=== PATIENT | male | born 1960 | race Caucasian/White ===

== ENCOUNTER 2020-12-28 10:48 | Emergency (ER) | payer OTHER ==
[2020-12-28 12:02] LABS: BASOPHIL 0.3 % (0-2); EOSINOPHIL 0.6 % (0-5); HCT 33.5 % (42.0-52.0); HGB 10.6 g/dl (13.2-18.0); LYMPHOCYTE 12.5 % (15-48); MCH 31.5 pg (25.0-31.0); MCHC 31.6 g/dL (32.0-36.0); MCV 99.4 fL (78.0-100.0); MONOCYTE 8.2 % (0-12); MPV 10.5 fL (6.0-9.5); NRBC 0; PLT 149 K/uL (150-400); RBC 3.37 M/uL (4.70-6.00); RDW 13.2 % (11.5-14.0); WBC 11.4 K/uL (4.0-10.5)
[2020-12-28 12:25] LABS: BILIRUBIN - TOTAL 0.6 mg/dL (0.2-1.0); BUN/CREAT RATIO (CALC) 17.4 RATIO; CREATININE 1.21 mg/dL (0.67-1.17); GLOBULIN (CALCULATION) 2.9 g/dL; POTASSIUM 3.9 mmol/L (3.5-5.1); TOTAL PROTEIN 6.9 g/dL (6.4-8.2)
[2020-12-28 12:36] LABS: CKMB 0.7 ng/mL (0.0-3.6); PRO-BNP 4607 pg/mL (<125)
[2020-12-28] MEDS ORDERED: LASIX20 MG PO (13:29)
[2020-12-28] MEDS ORDERED: K-DUR20 MEQ PO (13:29)
== END 2020-12-28 13:35 | disposition home or self-care (01) ==
LOC: FER 10:48
PROVIDERS: Emergency Medicine
DX: I11.0 Hypertensive heart disease with heart failure (principal); I50.9 Heart failure, unspecified; I25.10 Atherosclerotic heart disease of native coronary artery without angina pectoris; F17.200 Nicotine dependence, unspecified, uncomplicated
CPT/HCPCS: 36415; 71046; 80053; 82553; 83880; 84484; 85025; 93005; J1940